=== PATIENT | female | born 1990 | race Caucasian/White ===

== ENCOUNTER 2016-07-28 14:48 | Emergency (ER) | payer OTHER ==
[~2016-07-28] VITALS: Ht 160 cm; Wt 114.3 kg
[2016-07-28] MEDS ORDERED: MEDR1VL IM (15:02)
[2016-07-28] MEDS ORDERED: TRAZ150T14 PO (15:02)
[2016-07-28 18:11] VITALS: BP 132/85
== END 2016-07-28 18:20 | disposition home or self-care (01) ==
LOC: EDBD 14:48 → EDSEX 14:48 → M ED 15:27
DX: F32.9 Major depressive disorder, single episode, unspecified (principal)